=== PATIENT | female | born 1970 | race Caucasian/White ===

== ENCOUNTER 2024-01-01 10:31 | Day surgery (SDC) | payer OTHER ==
[~2024-01-01] VITALS: Ht 167.6 cm; Wt 101.2 kg
[~2024-01-01 10:31] MED LIST: LIDOCAINE 2%, 20 ML MDV ONE; NORMAL SALINE 10 ML VIAL ONE; iopamidoL 50 ML VIAL IV ONE; methylPREDNISolone ACETATE 40 MG/ML ONE
[2024-01-01] MEDS: fentaNYL CITRATE/PF 100 MCG/2 ML AMP ONE (13:00)
[2024-01-01] MEDS: MIDAZOLAM HCL 5 MG/5 ML VIAL ONE (13:01)
[2024-01-01] MEDS: DIPHENHYDRAMINE INJ 50 MG/ML VIAL ONE (13:04)
[2024-01-01 13:45] VITALS: BP_SYST 138; PULSE 79; RESP 16; TEMP 98.1
== END 2024-01-01 13:45 | disposition home or self-care (01) ==
LOC: SDS 10:31 → SMU 10:32 → SDS 13:45
PROVIDERS: ATTEND Internal Medicine
DX: M51.16 Intervertebral disc disorders with radiculopathy, lumbar region (principal); M51.9 Unspecified thoracic, thoracolumbar and lumbosacral intervertebral disc disorder; Z90.710 Acquired absence of both cervix and uterus; Z98.891 History of uterine scar from previous surgery
CPT/HCPCS: 62323; J1200; J1030; J2250; J3010; Q9967; 76000; J2001

== ENCOUNTER 2024-03-11 07:11 | Day surgery (SDC) | payer OTHER ==
[~2024-03-11] VITALS: Ht 167.6 cm; Wt 102.1 kg
[2024-03-11] MEDS ORDERED: ONDANSETRON HCL 4 MG/2 ML VIAL ONE (08:57)
[2024-03-11] MEDS ORDERED: DIPHENHYDRAMINE INJ 50 MG/ML VIAL ONE (08:57)
[2024-03-11] MEDS ORDERED: DEXAMETHASONE SOD PHOSPHATE 4 MG/ML VIAL ONE (09:00)
[2024-03-11] MEDS: fentaNYL CITRATE/PF 100 MCG/2 ML AMP ONE (09:38)
[2024-03-11] MEDS: MIDAZOLAM HCL 5 MG/5 ML VIAL ONE (09:39)
[2024-03-11 12:51] VITALS: O2SAT 100
[2024-03-11 14:41] VITALS: BP_SYST 98; PULSE 72; RESP 16
== END 2024-03-11 10:28 | disposition home or self-care (01) ==
LOC: SDS 07:11 → SMU 07:30 → SDS 10:28
PROVIDERS: ATTEND Internal Medicine
DX: M51.16 Intervertebral disc disorders with radiculopathy, lumbar region (principal); Z90.710 Acquired absence of both cervix and uterus; Z98.891 History of uterine scar from previous surgery; Z79.899 Other long term (current) drug therapy
CPT/HCPCS: 64483; J1100; J2250; J3010; Q9967; 76000; J1200; J2405